=== PATIENT | male | born 1995 | race Caucasian/White ===

== ENCOUNTER 2017-05-14 12:38 | Emergency (ER) | payer BC ==
[~2017-05-14] VITALS: Ht 170.2 cm; Wt 66.0 kg
[2017-05-14 14:48] LABS: HEMATOCRIT 41.8 % (39.0-50.0); HEMOGLOBIN 14.1 g/dl (14.0-18.0); IMMATURE GRANULOCYTES 0.2 % (0.0-1.0); MEAN CELL VOLUME 90.9 fL CALC (80.0-100.0); MEAN CORPUSCULAR HGB 30.7 pG CALC (26.0-32.0); MEAN CORPUSCULAR HGB CONC 33.7 g/L CALC (32.0-36.0); NEUT# 8.16 thou/uL (1.82-7.42); RED BLOOD COUNT 4.6 mill/uL (4.70-6.10); RED CELL DISTRI WIDTH 12.1 % (11.5-15.5)
[2017-05-14 16:35] VITALS: BP 131/77
== END 2017-05-14 16:35 | disposition home or self-care (01) | DRG 313 ==
LOC: ED 12:38
PROVIDERS: Emergency Medicine
DX: R07.89 Other chest pain (principal); J45.909 Unspecified asthma, uncomplicated

== ENCOUNTER 2022-02-06 20:13 | Emergency (ER) | payer OTHER ==
[~2022-02-06] VITALS: Ht 170.2 cm; Wt 65.9 kg
[2022-02-06] MEDS ORDERED: AMOXICILLIN500 MG PO (22:32)
[2022-02-06 23:09] VITALS: BP 136/97
== END 2022-02-06 23:09 | disposition home or self-care (01) | DRG 159 ==
LOC: ED 20:13
DX: S01.511A Laceration without foreign body of lip, initial encounter (principal); W22.11XA Striking against or struck by driver side automobile airbag, initial encounter; V49.49XA Driver injured in collision with other motor vehicles in traffic accident, initial encounter